=== PATIENT | female | born 1980 | race Caucasian/White ===

== ENCOUNTER 2020-07-04 08:02 | Outpatient (REF) | payer OTHER, SELFPAY ==
[2020-07-09 21:38] LABS: HPV mRNA E6/E7 rflx Not Detected (Not Detected)
== END 2020-07-04 08:03 | disposition home or self-care (01) ==
LOC: HO.LAB 08:02
PROVIDERS: PCP Nurse Practitioner Family; Visit Provider Advanced Practice Midwife
DX: Z01.419 Encounter for gynecological examination (general) (routine) without abnormal findings (principal); Z79.899 Other long term (current) drug therapy; E66.01 Morbid (severe) obesity due to excess calories; Z68.41 Body mass index [BMI] 40.0-44.9, adult; Z80.3 Family history of malignant neoplasm of breast
CPT/HCPCS: 87624; 87625; 88142

== ENCOUNTER 2020-08-08 19:32 | Emergency (ER) | payer OTHER, SELFPAY ==
[2020-08-08 19:41] VITALS: BP 132/60; PULSE 71; RESP 16; TEMP 36; O2SAT 100; BMI 40.9
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
== END 2020-08-08 20:44 | disposition home or self-care (01) ==
PROVIDERS: Emergency Provider Internal Medicine; PCP Nurse Practitioner Family
DX: S29.012A Strain of muscle and tendon of back wall of thorax, initial encounter (principal); V43.52XA Car driver injured in collision with other type car in traffic accident, initial encounter; Y93.89 Activity, other specified; Y92.414 Local residential or business street as the place of occurrence of the external cause; Y99.9 Unspecified external cause status
CPT/HCPCS: 99284

== ENCOUNTER 2020-10-07 13:15 | Outpatient (REF) | payer OTHER, SELFPAY ==
[2020-10-10 16:02] LABS: HPV mRNA E6/E7 rflx Not Detected (Not Detected)
== END 2020-10-07 13:16 | disposition home or self-care (01) ==
LOC: HO.LAB 13:15
PROVIDERS: Visit Provider Advanced Practice Midwife
DX: R87.615 Unsatisfactory cytologic smear of cervix (principal)
CPT/HCPCS: 36415; 87624; 88142

== ENCOUNTER 2021-07-23 08:32 | Outpatient (REF) | payer OTHER, SELFPAY ==
[2021-07-23 11:17] LABS: MANUAL DIFF FLAG NO
[2021-07-23 11:26] LABS: Basophils Percent Auto 0.6 % (0-2); Eosinophils Percent Auto 0.8 % (0-4); Hematocrit 45.1 % (37.0-47.0); Hemoglobin 15.2 g/dl (12.0-16.0); Imm Gran Abs Auto 0.01 X10*3/uL (0.00-0.03); Imm Gran Pct Auto 0.2 % (0.0-0.4); Lymphocytes Absolute Auto 1.4 X10*3/uL (1.2-4.9); Lymphocytes Percent Auto 27.5 % (20-40); Mean Corpuscular HGB Conc 33.7 g/dl (31.0-35.0); Mean Corpuscular Volume 91.9 fL (80.0-98.0); Mean Platelet Volume 11.4 fL (9.4-12.3); Monocytes Absolute Auto 0.5 X10*3/uL (0.1-1.2); Monocytes Percent Auto 9.4 % (2-11); Neutrophils Absolute Auto 3.1 x10*3/uL (2.0-8.3); Neutrophils Percent Auto 61.5 % (45-73); Platelet Count 203 X10*3/uL (160-400); Red Blood Count 4.91 X10*6/uL (4.20-5.50); Red Cell Distribution Width 12.8 % (11.0-16.0)
[2021-07-23 11:42] LABS: Appearance Urine CLEAR; Color Urine YELLOW; Glucose Urine UA NEG (NEG); Leukocyte Esterase Urine 1+ (NEG); Nitrite Urine NEG (NEG); PH 6.5 (5.0-8.0); UACC Culture Trigger YES; Urine Blood NEG (NEG); Urine Ketones NEG (NEG); Urine Protein NEG (NEG-TRACE)
[2021-07-23 11:56] LABS: Alanine Aminotransferase 17 U/L (0-31); Albumin Level 4.3 g/dL (3.5-5.0); Alkaline Phosphatase 68 U/L (39-117); Anion Gap 12 (12-20); Aspartate Amino Transferase 22 U/L (5-31); Blood Urea Nitrogen 8 mg/dL (9-16); Calcium 9.8 mg/dL (8.4-10.2); Carbon Dioxide 27 mmol/L (22-29); Chloride 107 mmol/L (96-108); Cholesterol 134 mg/dL; Estimated Glomerular Filt Rate > 60; Glucose Fasting 99 mg/dL (60-99); HDL Cholesterol 55 mg/dL; Iron 67 mcg/dL (30-160); LDL Cholesterol Calculated 63 mg/dl; Percent Iron Saturation 20 % (15-50); Potassium 4.8 mmol/L (3.3-5.1); Sodium 141 mmol/L (135-145); Total Iron Binding Capacity 337 mcg/dL (228-428); Total Protein 6.9 g/dL (6.5-8.0); Triglycerides 80 mg/dL; Unsaturated Iron Binding 270 ug/dL
[2021-07-23 11:59] LABS: Bacteria Urine 1+ /LPF; RBC Urine 0-2 /HPF (0); Squamous Epithelial Cell Urine 1+ /LPF
[2021-07-23 12:16] LABS: Ferritin 53 ng/mL (10-122); TSH reflex Free T4 1.47 uIU/mL (0.32-4.0)
[2021-07-23 12:32] LABS: Folate > 20.0 ng/mL (> or = 4.0); Vitamin B12 1975 pg/mL (200-900)
== END 2021-07-23 08:33 | disposition home or self-care (01) ==
LOC: HO.HMGCLDS 08:32
PROVIDERS: Visit Provider Nurse Practitioner Family
DX: Z00.00 Encounter for general adult medical examination without abnormal findings (principal); D50.9 Iron deficiency anemia, unspecified; E53.8 Deficiency of other specified B group vitamins
CPT/HCPCS: 36415; 80053; 80061; 81001; 82607; 82728; 82746; 83540; 84443; 85025; 87086

== ENCOUNTER 2022-07-22 09:35 | Outpatient (REF) | payer OTHER, SELFPAY ==
[2022-07-22 11:14] LABS: Appearance Urine Clear; Color Urine Yellow; Glucose Urine UA Negative (Negative); Leukocyte Esterase Urine Negative (Negative); Nitrite Urine Negative (Negative); Specific Gravity - Urine <= 1.005 (1.005-1.025); Urine Blood Negative (Negative); Urine Ketones Negative (Negative); Urine Protein Negative (Neg-Trace)
[2022-07-22 11:16] LABS: MANUAL DIFF FLAG NO
[2022-07-22 11:35] LABS: Basophils Percent Auto 0.8 % (0-2); Eosinophils Absolute Auto 0.1 X10*3/uL (0.0-0.4); Eosinophils Percent Auto 1.4 % (0-4); Hematocrit 43.7 % (37.0-47.0); Hemoglobin 14.6 g/dl (12.0-16.0); Imm Gran Abs Auto 0.01 X10*3/uL (0.00-0.03); Imm Gran Pct Auto 0.3 % (0.0-0.4); Lymphocytes Absolute Auto 0.9 X10*3/uL (1.2-4.9); Lymphocytes Percent Auto 23.6 % (20-40); Mean Corpuscular HGB Conc 33.4 g/dl (31.0-35.0); Mean Corpuscular Hemoglobin 30.6 pg (27.0-33.0); Mean Corpuscular Volume 91.6 fL (80.0-98.0); Mean Platelet Volume 11.7 fL (9.4-12.3); Monocytes Absolute Auto 0.6 X10*3/uL (0.1-1.2); Monocytes Percent Auto 15.6 % (2-11); Neutrophils Absolute Auto 2.1 x10*3/uL (2.0-8.3); Neutrophils Percent Auto 58.3 % (45-73); Platelet Count 183 X10*3/uL (160-400); Red Blood Count 4.77 X10*6/uL (4.20-5.50); Red Cell Distribution Width 12.7 % (11.0-16.0); White Blood Count 3.7 X10*3/uL (4.8-10.8)
[2022-07-22 12:06] LABS: Ferritin 46 ng/mL (10-250); TSH reflex Free T4 1.82 uIU/mL (0.32-4.0)
[2022-07-22 12:07] LABS: Alanine Aminotransferase 14 U/L (0-31); Alkaline Phosphatase 81 U/L (39-117); Anion Gap 11 (12-20); Aspartate Amino Transferase 22 U/L (5-31); Bilirubin Total 1.8 mg/dL (0.0-1.0); Blood Urea Nitrogen 9 mg/dL (9-16); Calcium 8.7 mg/dL (8.4-10.2); Carbon Dioxide 28 mmol/L (22-29); Chloride 105 mmol/L (96-108); Cholesterol 131 mg/dL; Estimated Glomerular Filt Rate > 60; Glucose Fasting 91 mg/dL (60-99); HDL Cholesterol 60 mg/dL; Iron 167 mcg/dL (30-160); LDL Cholesterol Calculated 55 mg/dl; Percent Iron Saturation 49 % (15-50); Potassium 4.1 mmol/L (3.3-5.1); Sodium 140 mmol/L (135-145); Total Iron Binding Capacity 338 mcg/dL (228-428); Total Protein 6.5 g/dL (6.5-8.0); Triglycerides 80 mg/dL; Unsaturated Iron Binding 171 ug/dL
== END 2022-07-22 09:36 | disposition home or self-care (01) ==
LOC: HO.HMGCLDS 09:35
PROVIDERS: PCP Nurse Practitioner Family; Visit Provider Nurse Practitioner Family
DX: Z00.00 Encounter for general adult medical examination without abnormal findings (principal); D50.9 Iron deficiency anemia, unspecified
CPT/HCPCS: 36415; 80053; 80061; 81003; 82728; 83540; 84443; 85025

== ENCOUNTER → 2022-08-14 10:18 | Outpatient (REF) | payer OTHER, SELFPAY ==
--- NOTE | 2022-08-14 10:20 | CA_ITS ---
Transthoracic Echocardiogram Patient (Last, First, Middle): Karla Rolle, Gender: Female Date of : 1980 Age: 42 Procedure Date: 08/14/2022 Procedure Type: Transthoracic Echocardiogram Location: OP Height: 157.48 cm Weight: 102.97 kg BSA: 2.02 m2 Heart Rate: 60 bpm BP: 120 / 75 mmHg Pattern Drum Maker: ONEIDA Referring MD: Jeronimo Lewis [facility] Symptoms: R01.1 - Cardiac murmur, unspecified Study Quality: Poor/Contrast ECG Rhythm: Sinus Conclusions: - The left ventricular systolic function is normal. The calculated ejection fraction is 60% by biplane method. - No obvious valvular pathology seen on this study. Findings Procedure Information Contrast agent, definity, is being given per protocol without apparent complications. Left Ventricle Normal left ventricular cavity size. There is normal left ventricular wall thickness. The left ventricular systolic function is normal. The calculated ejection fraction is 60% by biplane method. There is no evidence of regional wall motion abnormalities. Diastolic function is normal for age. Right Ventricle Normal right ventricular cavity size and systolic function. Atria Both atria are normal in size. Aortic Valve There is a normal trileaflet aortic valve. There is no aortic valve stenosis. There is no aortic valve regurgitation. Mitral Valve The mitral valve appears normal. There is trace mitral valve regurgitation. There is no mitral valve stenosis. Pulmonic Valve The pulmonic valve is likely normal. Tricuspid Valve Normal tricuspid valve structure. There is mild tricuspid valve regurgitation. There is no evidence of pulmonary hypertension. Great Vessels The asc aorta is normal in size. Venous The inferior vena cava is normal in size and collapses greater than 50% with inspiration. Pericardium/Pleural There is no evidence of pericardial effusion. Prior Study Comparison No significant change compared to prior study dated: 05/18/2019. Recommendations, Care & Conclusions No obvious valvular pathology seen on this study. Measurements 2D Linear Measurements IVSd: 0.81 0.6-0.9/0.6-1.0 cm LVIDd: 5.19 3.9-5.3/4.2-5.9 cm LVIDd Index: 2.57 2.4-3.2/2.2-3.1 cm/m2 LVIDs: 2.71 2.0-3.6 cm LVPWd: 0.92 0.7-1.1 cm LA Diam: 3.20 2.7-3.8/3.0-4.0 cm LAIDs Index: 1.58 1.5-2.3 cm/m2 LV Mass: 198.19 67-162/88-224 g LV Mass Index: 98.12 43-95/49-115 g/m2 LVOT Diam: 1.80 3.0+(-)1.3 cm 2D Systolic Function EF 4C: 61.10 >55% EF 2C: 60.40 >55% EF BiP: 60.20 >55% Mitral Valve MV Pk E: 0.97 MV PK A: 0.67 MV Decel Time: 216.00 E/A: 1.40 E'Lateral: 13.60 E'Medial: 11.30 E/E' Med: 8.60 E/E' Lat: 7.10 PHT: 63.00 MVA PHT: 3.49 Decel Ogle: 4.49 Aortic Valve AoV Pk Jaime: 1.49 AoV Mn Jaime: 1.01 AoV VTI: 0.33 AoV Pk Grad: 9.00 Aov Mn Grad: 5.00 CINDY Cont.VTI: 1.88 LVOT LVOT Pk Jaime: 1.15 LVOT Mn Jaime: 0.76 LVOT VTI: 0.24 LVOT Pk Grad: 5.00 LVOT Mn Grad: 3.00 LVOT Diam: 1.80 LVOT Area: 2.54 Diastolic Function MV Pk E: 0.97 MV Pk A: 0.67 E/A: 1.40 E'Medial: 11.30 E/E' Med: 8.60 E' Laterial: 13.60 E/E' Lat: 7.10 Right Ventricle TAPSE (mm): 24.30 TVS' Jaime: 11.00 Tricuspid Valve TR Pk Jaime: 2.10 TR Pk Grad: 18.00 RA Press: 3.00 RVSP: 21.00 Great Vessels Aorta Sinus of Valsalva: 2.60 2.0-3.5 cm Ao Asc: 2.90 2.1-3.4 cm Pulmonary Valve PV Pk Jaime: 1.05 Peak PV Grad: 4.00 Updated in Other Vendor System with Status of Final Samuel Barnett MD electronically signed on 08/15/2022 2:14:29 PM with status of Final
== END ==
LOC: HO.CARD 10:18
PROVIDERS: PCP Nurse Practitioner Family; Visit Provider Nurse Practitioner Family
DX: R01.1 Cardiac murmur, unspecified (principal)
CPT/HCPCS: 93306; Q9957

== ENCOUNTER 2022-08-18 15:49 | Outpatient (REF) | payer OTHER, SELFPAY ==
--- NOTE | ~2022-08-18 | MM_ITS ---
EXAMINATION: MM SCREENING DIGITAL BREAST TOMOSYNTHESIS, BILATERAL CLINICAL INFORMATION: Screening. Asymptomatic. The lifetime risk of breast cancer based on the Tyrer-Cuzick Model is 15.6%. COMPARISON: Mammography: None TECHNIQUE: Digital breast tomosynthesis is performed in both the craniocaudal and mediolateral oblique views along with computer-aided detection (CAD). Synthesized 2D images are generated from the tomosynthesis. FINDINGS: There are scattered areas of fibroglandular density (ACR BI-RADS breast composition Category b). There are no significant masses, abnormal calcifications, or other abnormalities. MM/MM tomosynthesis screening BI IMPRESSION: No mammographic evidence of malignancy. ASSESSMENT: BI-RADS 1: Negative RECOMMENDATION: Routine annual mammography screening. This patient's information was entered into a reminder system with a target due date for their next mammogram.
== END 2022-08-18 15:50 | disposition home or self-care (01) ==
LOC: HO.MAMMO 15:49
PROVIDERS: PCP Nurse Practitioner Family; Visit Provider Nurse Practitioner Family
DX: Z12.31 Encounter for screening mammogram for malignant neoplasm of breast (principal)
CPT/HCPCS: 77063; 77067

== ENCOUNTER 2022-11-19 11:13 | Outpatient (REF) | payer OTHER, SELFPAY ==
[2022-11-20 10:39] LABS: BV Int Neg Control Negative (Negative); BV Int Pos Control Positive (Positive)
== END 2022-11-19 11:14 | disposition home or self-care (01) ==
LOC: HO.LAB 11:13
PROVIDERS: PCP Nurse Practitioner Family; Visit Provider Advanced Practice Midwife
DX: Z01.419 Encounter for gynecological examination (general) (routine) without abnormal findings (principal); N92.0 Excessive and frequent menstruation with regular cycle; N84.1 Polyp of cervix uteri
CPT/HCPCS: 87480; 87510; 87660

== ENCOUNTER 2022-12-03 12:44 | Outpatient (REF) | payer OTHER, SELFPAY ==
--- NOTE | ~2022-12-03 | US_ITS ---
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 Transvaginal imaging is performed due to inadequate visualization transabdominally. FINDINGS: Uterus: The uterus is retroflexed and measures 7.2 x 3.7 x 5.2 cm. The double wall endometrial thickness is 7 mm. The uterus is smooth in contour and has normal myometrial echogenicity. No visible fibroid. Adnexa: Both ovaries are visualized. There is normal color flow to the adnexa. There is no ovarian torsion. There is no pelvic ascites or fluid collection. Right ovary measures 3.3 x 2.0 x 2.2 cm. Volume of 8 mL. There appears to be a mildly complex cysts with smooth back wall and increased through sound transmission and no internal vasculature measuring approximately 1.7 x 1.2 x 1.1 cm in size. No follow-up for this is recommended. Left ovary measures 3.8 x 2.0 x 2.2 cm. Volume of 9 mL. There is a 1.7 x 1.2 x 1.1 cm hypoechoic region with increased through sound transmission and some central echogenic material. No internal vascularity is seen however there is peripheral vascularity present in this likely represents a corpus luteum. No follow-up for this is recommended. US/US pelvic and transvaginal IMPRESSION: No definite cervical polyp is appreciated on this ultrasound study. No other endometrial lesions are appreciated.
== END 2022-12-03 12:45 | disposition home or self-care (01) ==
LOC: HO.US 12:44
PROVIDERS: PCP Nurse Practitioner Family; Visit Provider Advanced Practice Midwife
DX: N84.1 Polyp of cervix uteri (principal); N92.0 Excessive and frequent menstruation with regular cycle
CPT/HCPCS: 76830; 76856

== ENCOUNTER 2022-12-10 11:08 | Outpatient (REF) | payer OTHER, SELFPAY | END 2022-12-10 11:09 | disposition home or self-care (01) | LOC: HO.LAB 11:08 | PROVIDERS: PCP Nurse Practitioner Family; Visit Provider Advanced Practice Midwife | DX: N84.1 Polyp of cervix uteri (principal); Z32.02 Encounter for pregnancy test, result negative | CPT/HCPCS: 57500; 81025; 88305 ==

== ENCOUNTER → 2022-12-15 14:20 | Outpatient (BNVA) | payer OTHER, SELFPAY | PROVIDERS: PCP Nurse Practitioner Family; Visit Provider Advanced Practice Midwife | DX: Z13.89 Encounter for screening for other disorder (principal) ==

== ENCOUNTER 2023-01-14 10:50 | Outpatient (REF) | payer OTHER, SELFPAY ==
--- NOTE | ~2023-01-14 | US_ITS ---
EXAMINATION: US PELVIS COMPLETE CLINICAL INFORMATION: Ovarian cyst follow-up COMPARISON: Pelvic ultrasound 12/03/2022 TECHNIQUE: Transabdominal and transvaginal imaging was performed. FINDINGS: The uterus is of normal size and echogenicity measuring 9.4 x 3.7 x 4.7 cm. Uterus is retroverted in position. A regular homogeneous endometrium is identified measuring 1.4 cm. Both ovaries are of normal size. The right measures 3.6 x 2.5 x 2.3 cm for a volume of 10.8 mL. The right ovary is remarkable for a 1.8 x 1.3 x 1.6 cm cyst with low level internal echoes and possible fluid fluid level, previously 1.4 x 1.2 x 1.4 cm. The left measures 3.5 x 2.2 x 2.0 cm for a volume of 8.1 mL. There is no pelvic free fluid. US/US pelvic and transvaginal IMPRESSION: A 1.8 cm right ovarian cyst with low-level internal echoes and possible fluid fluid level, slightly increased in size from prior. Differential consideration would include an ovarian endometrioma, which could be confirmed with contrast-enhanced MR pelvis.
== END 2023-01-14 10:51 | disposition home or self-care (01) ==
LOC: HO.US 10:50
PROVIDERS: PCP Nurse Practitioner Family; Visit Provider Advanced Practice Midwife
DX: R10.2 Pelvic and perineal pain (principal); N83.299 Other ovarian cyst, unspecified side
CPT/HCPCS: 76830; 76856

== ENCOUNTER → 2023-01-28 14:55 | Outpatient (BNVA) | payer OTHER, SELFPAY | PROVIDERS: PCP Nurse Practitioner Family; Visit Provider Advanced Practice Midwife ==

== ENCOUNTER 2023-02-10 14:26 | Outpatient (REF) | payer OTHER, SELFPAY ==
--- NOTE | ~2023-02-10 | MR_ITS ---
EXAMINATION: MRI PELVIS WITH AND WITHOUT CONTRAST CLINICAL INFORMATION: Reason for Exam N83.201 - Unspecified ovarian cyst, right side COMPARISON: Pelvic ultrasound 01/14/2023 TECHNIQUE: Multiple routine MRI sequences through the pelvis were obtained before and after the uneventful administration of 10 mL of Gadavist gadolinium-based IV contrast. FINDINGS: UTERUS: Retroverted uterus has a normal configuration. Endometrium is uniform and measures 0.7 cm in thickness. Junctional zone is normal in signal and thickness. No focal uterine mass seen. CERVIX: Unremarkable. VAGINA: Unremarkable. OVARIES: The right ovary is remarkable for a 2.3 cm bilobed intrinsically T1 hyperintense left right ovarian lesion with a T2 hypointense shading sign compatible with an endometrioma but previously 1.8 cm. The left ovary is unremarkable. KIDNEYS: Two normally positioned kidneys are seen. No hydronephrosis. BLADDER: Unremarkable. PELVIC FREE FLUID: Trace simple pelvic free fluid within physiologic limits of volume. LYMPH NODES: No pathologically enlarged lymph nodes. OSSEOUS STRUCTURES: No acute or suspicious osseous abnormalities. MR/MR pelvis wo/w con IMPRESSION: A 2.3 cm bilobed right ovarian endometrioma. If not surgically resected, recommend annual follow-up pelvic ultrasound.
== END 2023-02-10 14:27 | disposition home or self-care (01) ==
LOC: HO.MRI 14:26
PROVIDERS: PCP Nurse Practitioner Family; Visit Provider Advanced Practice Midwife
DX: N83.201 Unspecified ovarian cyst, right side (principal)
CPT/HCPCS: 72197; A9585

== ENCOUNTER → 2023-02-23 13:30 | Outpatient (BNVA) | payer OTHER, SELFPAY | PROVIDERS: PCP Nurse Practitioner Family; Visit Provider Advanced Practice Midwife ==

== ENCOUNTER 2023-08-27 07:23 | Outpatient (REF) | payer OTHER, SELFPAY ==
--- NOTE | ~2023-08-27 | MM_ITS ---
EXAMINATION: MM SCREENING DIGITAL BREAST TOMOSYNTHESIS, BILATERAL CLINICAL INFORMATION: Screening. Asymptomatic. COMPARISON: Mammography: 08/18/2022. (Baseline) TECHNIQUE: Digital breast tomosynthesis is performed in both the craniocaudal and mediolateral oblique views along with computer-aided detection (CAD). Synthesized 2D images are generated from the tomosynthesis. FINDINGS: There are scattered areas of fibroglandular density (ACR BI-RADS breast composition Category b). There is a subtle focal asymmetric density in the far posterior upper outer LEFT breast just lateral to the nipple line on the CC projection. This most likely represents tissue density overlapped although 3-D spot compression views in the CC and MLO projections recommended, as well as 3-D CC rolled medial and rolled lateral views, with scheduled ultrasound should the abnormality persist. Otherwise, there are no additional suspicious masses, suspicious grouped calcifications, or areas of architectural distortion in either breast. The parenchymal pattern is stable from prior exams. MM/MM tomosynthesis screening BI IMPRESSION: Left breast far posterior slightly upper outer quadrant asymmetric density as described, for which diagnostic views are recommended as detailed. No suspicious findings in the right breast. ASSESSMENT: BI-RADS BI-RADS 0 - Incomplete: Needs additional Imaging. RECOMMENDATION: 1. Additional views of the left breast 2. Targeted ultrasound if warranted after review of the additional views. 3. Radiology department staff will contact the patient for additional imaging. Additional Imaging required This examination should not preclude the clinical evaluation of a suspicious palpable abnormality.
== END 2023-08-27 07:24 | disposition home or self-care (01) ==
LOC: HO.MAMMO 07:23
PROVIDERS: PCP Nurse Practitioner Family; Visit Provider Nurse Practitioner Family
DX: Z12.31 Encounter for screening mammogram for malignant neoplasm of breast (principal)
CPT/HCPCS: 77063; 77067

== ENCOUNTER → 2023-08-27 07:30 | Outpatient (BNV) | payer OTHER, SELFPAY | PROVIDERS: PCP Nurse Practitioner Family; Visit Provider Radiology Diagnostic Radiology | DX: Z12.31 Encounter for screening mammogram for malignant neoplasm of breast (principal) | CPT/HCPCS: 77063; 77067 ==

== ENCOUNTER 2023-10-28 10:51 | Outpatient (REF) | payer OTHER, SELFPAY ==
--- NOTE | ~2023-10-28 | MM_ITS ---
EXAMINATION: MM DIAGNOSTIC DIGITAL BREAST TOMOSYNTHESIS, LEFT US BREAST LIMITED, LEFT MAMMOGRAPHY: CLINICAL INFORMATION: Follow-up focal asymmetry seen on screening exam posterior one third left breast just lateral to the nipple line, slightly superior to the nipple line. COMPARISON: Mammography: Screening mammography 08/31/2023, and 08/19/2022. TECHNIQUE: Digital breast tomosynthesis is performed in the following views: Full-field left 3-D mediolateral view, full-field 3-D left CC rolled medial and rolled lateral views, and 3-D spot compression left CC and MLO views were performed. Computer-aided diagnosis was used for this study. FINDINGS: There are scattered areas of fibroglandular density (ACR BI-RADS breast composition Category b). There is persistence of a 4 mm oval focal asymmetry on the CC spot compression view, however this is not well seen on the rolled medial or rolled lateral CC views. The correlate seen in the posterior slightly upper left MLO has the appearance of overlapping tissue on diagnostic views. We will attempt to visualize this finding with ultrasound although it appears this is most likely related to superimposition artifact of normal tissues, and not a true space-occupying abnormality. No new abnormal findings are evident in the left breast. ULTRASOUND: CLINICAL INFORMATION: Evaluate small posterior focal asymmetry slightly upper slightly outer left breast, likely a summation artifact. COMPARISON: No prior ultrasound. TECHNIQUE: Targeted sonographic evaluation was performed using a high frequency linear transducer. Selected archived documentation. FINDINGS: LEFT BREAST: There is a mixture of fatty and fibroglandular tissue. No suspicious mass is seen. There is no pathologic acoustic shadowing. A prominent venous structure is noted. No cystic abnormality. Overall, no correlate to the small 4 mm focal asymmetry in the posterior upper lateral right breast. MM/MM tomosynthesis added views L IMPRESSION: -There are no findings in the left breast suspicious for malignancy. -4 mm asymmetry only well seen on the CC projection posterior slightly upper outer left breast is felt most likely represent summation artifact and has no definite ultrasound correlate. It also appears to not definitively persist on the additional diagnostic views. Six-month interval follow-up diagnostic mammography with standard 3-D CC and MLO views recommended to ensure stability. If not changed at that time, no further follow-up recommended. OVERALL ASSESSMENT: Mammography: BI-RADS 3 - Probably benign finding(s) - 6 month follow-up suggested Ultrasound: BI-RADS 3 - Probably benign finding(s) - 6 month follow-up suggested RECOMMENDATION: 6 Month F/U This patient's information was entered into a reminder system with a target due date for their next mammogram.
== END 2023-10-28 10:52 | disposition home or self-care (01) ==
LOC: HO.MAMMO 10:51
PROVIDERS: PCP Nurse Practitioner Family; Visit Provider Nurse Practitioner Family
DX: R92.2 Inconclusive mammogram (principal)
CPT/HCPCS: 76642; 77061; 77065

== ENCOUNTER → 2023-10-28 11:00 | Outpatient (BNV) | payer OTHER, SELFPAY | PROVIDERS: PCP Nurse Practitioner Family; Visit Provider Radiology Diagnostic Radiology | DX: R92.8 Other abnormal and inconclusive findings on diagnostic imaging of breast (principal) | CPT/HCPCS: 76642; 77061; 77065 ==

== ENCOUNTER 2024-01-19 14:56 | Outpatient (AMB) | payer OTHER, SELFPAY ==
--- NOTE | 2024-01-19 14:59 | MHC.OFFVIS ---
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 Doing well with no concerns. She had a total hysterectomy and bilateral salpingectomies due to heavy menstrual bleeding, endometrial asthma and chronic pelvic pain. She tries to eat healthy and stays active with exercise. Currently is sexually active. She denies vaginal itching and irritation. Pt. with history of negative genetic testing, FH breast and ovarian, no colon cancer. Mammogram: 2023, has a six-month follow-up. [facility] Medical History (Updated 01/19/24 @ 15:28 by Socorro Kelsey CNM) Endometrioma of ovary Right ovarian cyst Holosystolic murmur Morbid obesity with BMI of 40.0-44.9, adult Iron deficiency anemia B12 deficiency Vitamin D deficiency Family history of breast cancer Surgical History (Updated 01/19/24 @ 15:14 by Socorro Kelsey CNM) Hx of hysterectomy History of tonsillectomy and adenoidectomy Hx of cholecystectomy H/O gastric bypass Family History Father No problems noted. Mother Breast cancer Bone cancer Brain cancer Maternal Grandmother Cancer HTN (hypertension) Ovarian cancer Maternal Grandfather No problems noted. Paternal Grandfather No problems noted. Paternal Grandmother Skin cancer Sister No problems noted. Son No problems noted. Son No problems noted. Social History Housing: House Alcohol intake: current Alcohol intake frequency: holidays/special occasions only Patient Tobacco Use Status: Never used Tobacco e-Cigarette/Vaping Use: Never Used Second Hand Smoke Exposure: No (as a child ) service: No Current occupational status: employed Current occupation: [employer] Current occupational exposures/hazards: Yes Sexual orientation: Straight/Heterosexual Gender identity: Female Cognitive needs: No Hearing needs: No Vision needs: No Female Reproductive History Menstrual Age of Menarche: 14 control method: permanent sterilization Total pregnancies: 2 Full term: 2 Number of Living Children: 2 Date of last pap smear: 10/08/20 (negative) Date of Mammogram: 10/28/23 Review of Systems Const All systems reviewed & are unremarkable except as noted in HPI and below Reports as per HPI Eyes Reports no additional complaints ENT Reports no additional complaints Card Reports no additional complaints Resp Reports no additional complaints GI Reports as per HPI and Reports no additional complaints Reports as per HPI Musc Reports no additional complaints Skin/Breast Reports as per HPI Neuro Reports no additional complaints Psych Reports no additional complaints Endo Reports no additional complaints Jesu/Lymph Reports no additional complaints Aller/Immun Reports no additional complaints Physical Exam Vital Signs: BMI result Body Mass Index 44.3 Const General: cooperative, healthy appearing, no acute distress, well developed and alert Orientation/consciousness: patient oriented x3 HEENT Head: Yes normal to inspection Eyes General: appearance normal, both eyes and all related structures Neck Neck: Yes normal visual inspection Thyroid: Thyroid normal Chest Chest palpation & inspection: normal inspection of the chest and other (no puckering, dimpling, peau de orange, retraction, discharge, masses) Breast/axilla inspection: normal inspection of the breasts Breast/axilla palpation: normal palpation of the breasts Resp Effort & Inspection: normal respiratory effort GI Inspection: Yes normal to inspection Palpation (GI): Soft to palpation Rectal Exam - Female: deferred General: Yes bladder normal to palpation External Female Exam: normal external appearance and normal appearance of the urethra Speculum Exam - Vagina: normal appearance of the vagina, normal palpation and normal vaginal discharge Speculum Exam - Cervix: Cervix absent (No lesions or nodules, granulation tissue at midline) Bimanual exam- vagina & uterus: normal bimanual exam, normal palpation, bladder normal to palpation and uterus absent Bimanual Exam- Adnexa, other: no masses Skin General skin exam: no rashes or lesions noted Rashes: no rashes Neuro General: patient oriented x3 Cognition (Neuro): normal cognition Extrem General: Yes normal to inspection Psych Attitude: cooperative Thought process: Normal thought process present Assessment & Plan Assessment & Plan (1) Well woman exam with routine gynecological exam: Code(s): Z01.419 - Encounter for gynecological examination (general) (routine) without abnormal findings Category: Medical Plan Discussed: Current recommendations for pap smears per ASCCP guidelines-no pap. Breast awareness and periodic breast exams. Maintain a healthy lifestyle including a well balanced diet and routine exercise. Mammogram yearly and 6 month follow up. Colonoscopy >45, or at risk sooner. Patient verbalizes understanding and agrees to the plan of care. She was given opportunity to ask questions and all questions were answered to the best of my ability. RTO in one year for annual senior government program analyst examination. This note is constructed using voice recognition software. While every effort has been made to ensure accuracy, manager android errors may have been included. Coding Level of Care Code Est Pt Prev Care 40-64y(50302) Diagnoses Well woman exam with routine gynecological exam Z01.419
[2024-01-19 15:01] VITALS: BP 100/58; BMI 44.3
== END 2024-01-19 16:11 | disposition home or self-care (01) ==
LOC: HO.HWS 14:56
PROVIDERS: PCP Nurse Practitioner Family; Visit Provider Advanced Practice Midwife
DX: Z01.419 Encounter for gynecological examination (general) (routine) without abnormal findings (principal)
CPT/HCPCS: 99396

== ENCOUNTER → 2024-01-19 14:56 | Outpatient (BNVA) | payer OTHER, SELFPAY | PROVIDERS: PCP Nurse Practitioner Family; Visit Provider Advanced Practice Midwife ==

== ENCOUNTER 2024-03-07 12:20 | Outpatient (AMB) | payer BC, SELFPAY ==
--- NOTE | 2024-03-07 12:31 | MHC.PC.OV ---
Vital Signs 03/07/24 12:34 Height 5 ft 2 in Weight 237 lb BMI 43.3 BP 108/70 Blood Pressure Location Rt brachial Position Sitting Pulse 55 Pulse Source Pulse Oximeter Pulse Oximetry (%) 99 Oxygen Delivery Method Room Air Intake Visit Reasons: PE Intake Note: Patient here for physical exam. Pap: 2023 Mammo: 2023 Allergies codeine Allergy (Unknown, Verified 03/07/24 13:00) Unknown erythromycin base [Erythromycin Base] Allergy (Unknown, Verified 03/07/24 13:00) RASH Penicillins Allergy (Unknown, Verified 03/07/24 13:00) ANAPHYLAXIS, hives Medication List - Last Reconciled 03/07/24 by RADHA Goddard ascorbic acid (vitamin C) mg PO cholecalciferol (vitamin D3) 125 mcg PO DAILY cyanocobalamin (vitamin B-12) 2,000 mcg PO DAILY ferrous sulfate ER 142 mg PO DAILY Tobacco use date assessed: 03/07/24 Dental Screening Dental Screen Date: 03/07/24 Did you have a dental visit in the last 12 months?: Yes Did you have a dental problem in the last 6 months where you did not have access to dental care?: No Was dental information given to patient?: Patient has dentist HPI PE HPI Details Pt is here for a PE. Will order labs. Mammo is up to date. 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 Pt has a hx of iron deficiency anemia, will order labs. She also has a hx of B12 deficiency, will check B12. [facility] Medical History Endometrioma of ovary Right ovarian cyst Holosystolic murmur Morbid obesity with BMI of 40.0-44.9, adult Iron deficiency anemia B12 deficiency Vitamin D deficiency Family history of breast cancer Surgical History Hx of hysterectomy History of tonsillectomy and adenoidectomy Hx of cholecystectomy H/O gastric bypass Family History Father No problems noted. Mother Breast cancer Bone cancer Brain cancer Maternal Grandmother Cancer HTN (hypertension) Ovarian cancer Maternal Grandfather No problems noted. Paternal Grandfather No problems noted. Paternal Grandmother Skin cancer Sister No problems noted. Son No problems noted. Son No problems noted. Social History Housing: House Alcohol intake: current Alcohol intake frequency: holidays/special occasions only Patient Tobacco Use Status: Never used Tobacco e-Cigarette/Vaping Use: Never Used Second Hand Smoke Exposure: No (as a child ) service: No Current occupational status: employed Current occupation: [email or web address] Current occupational exposures/hazards: Yes Sexual orientation: Straight/Heterosexual Gender identity: Female Cognitive needs: No Hearing needs: No Vision needs: No Female Reproductive History Menstrual Age of Menarche: 14 Questionnaire PHQ-9 Over the last 2 weeks, how often have you been bothered by any of the following problems? 1. Little interest or pleasure in doing things: not at all 2. Feeling down, depressed, or hopeless: not at all 3. Trouble falling or staying asleep, or sleeping too much: not at all 4. Feeling tired or having little energy: not at all 5. Poor appetite or overeating: not at all 6. Feeling bad about yourself - or that you are a failure or have let yourself or your family down: not at all 7. Trouble concentrating on things, such as reading the newspaper or watching television: not at all 8. Moving or speaking so slowly that other people could have noticed. Or the opposite - being so fidgety or restless that you have been moving around a lot more than usual: not at all 9. Thoughts that you would be better off or of hurting yourself in some way: not at all Total score: 0 Depression Screening Interpretation: Negative Depression Screening Done: Yes 26739 - PHQ-9 Billing: Yes Source: Developed by Drs. Guerrero Lee, Zarina Smyth, Thomas Figueroa and colleagues, with an educational aleksander from [employer]. Thrive Questionnaire Date Thrive assessed: 03/07/24 I am a: Patient What is your living situation today?: I have a steady place to live Within the past 12 months, did the food you bought not last and you didn't have the money to get more?: Never true Within the past 12 months, did you worry whether your food would run out before you got money to buy more?: Never true Do you have trouble paying for medicines?: No Do you have trouble getting transportation to medical appointments?: No Do you have trouble paying your heating and electricity bill?: No Do you have trouble taking care of your child, family member or friend?: No Do you have trouble with day-to-day activities such as bathing, preparing meals, shopping, managing finances, etc.?: No Are you currently unemployed and looking for a job?: No Are you interested in more education?: No Please select the resources that you would like help with: None Currently or been in a relationship where the following occur: I choose not to answer THRIVE Score: 0 AUDIT C Alcohol Use Questionnaire (AUDIT-C) 1. How often do you have a drink containing alcohol?: Monthly or less 2. How many drinks containing alcohol do you have on a typical day when you are drinking?: 1 or 2 3. How often do you have six or more drinks on one occasion?: Never Total Score: 1 Score Reviewed/Action Taken: No HARRISON-7 AMB Questionnaire HARRISON-7 Date HARRISON - 7 assessed: 03/07/24 Source: Developed by Drs. Guerrero Lee, Zarina Smyth, Thomas Figueroa and colleagues, with an educational aleksander from [employer]. HARRISON-7 Assessment Billing HARRISON-7 Assessment Tool: pt declined-do not bill Review of Systems Const Denies chills and Denies fever(s) Eyes Denies blurry vision ENT Denies vertigo, Denies dizziness and Denies sore throat Card Denies chest pain at rest, Denies chest pain with activity, Denies diaphoresis, Denies dyspnea and Denies dyspnea on exertion Resp Denies cough, Denies dyspnea, Denies dyspnea on exertion and Denies wheezing GI Denies abdominal pain, Denies melena, Denies hematochezia, Denies constipation, Denies diarrhea and Denies loose stools Denies hematuria Musc Denies numbness and Denies tingling Skin/Breast Denies lesions Neuro Denies vertigo, Denies dizziness, Denies numbness and Denies tingling Psych Denies anxiety, Denies depression, Denies homicidal ideation, Denies suicidal ideation and Denies other (substance abuse) Aller/Immun Denies wheezing Physical exam (Primary Care) Vital Signs: Last Vital Signs Pulse 55 03/07/24 12:34 BP 108/70 03/07/24 12:34 Pulse Ox 99 03/07/24 12:34 Oxygen Delivery Method Room Air 03/07/24 12:34 BMI result Body Mass Index 43.3 Tobacco/Smoking Status: Tobacco use Status Tobacco use date assessed 03/07/24 03/07/24 12:37 Patient Tobacco Use Status Never used Tobacco 03/07/24 12:32 e-Cigarette/Vaping Use Never Used 03/07/24 12:32 Depression Screening Interpretation: Negative Thrive Assessment: Date of Thrive Assessment Date Thrive assessed 07/20/22 03/07/24 12:32 Currently or been in a relationship where the following occur: I choose not to answer Const General: cooperative Nutritional Appearance: obese morbidly obese Orientation/consciousness: patient oriented x3 HENMT Head: Yes normal to inspection, Yes normocephalic and Yes atraumatic Ears: TM's normal bilaterally Eyes General: appearance normal, both eyes and all related structures Alignment and Position: alignment normal and position normal Neck Neck: Yes normal visual inspection and Yes no lymphadenopathy Thyroid: Thyroid normal Resp Effort & Inspection: normal respiratory effort Auscultation: clear to auscultation bilaterally Cardio Rate: regular rate Rhythm: regular rhythm Heart sounds: S1 normal heart sound present, S2 normal heart sound present and no murmurs GI Palpation (GI): Soft to palpation and nontender Auscultation: normal bowel sounds Skin Rashes: no rashes Neuro General: patient oriented x3, moves all extremities, no focal motor deficits and deep tendon reflexes 2+ bilaterally Romberg Test: Negative Psych Appearance: grossly normal Mental Status: mental status grossly normal Speech and movement: Normal speech and movement present Affect: normal affect Attitude: cooperative Thought process: Normal thought process present Thought content: Normal thought content present Insight: Good insight present (Psych) Judgement: Good judgement present (Psych) Assessment and Plan Assessment & Plan (1) Iron deficiency anemia: Code(s): D50.9 - Iron deficiency anemia, unspecified Plan: Labs ordered (2) B12 deficiency: Code(s): E53.8 - Deficiency of other specified B group vitamins Plan: Labs ordered (3) Encounter for routine adult physical exam with abnormal findings: Code(s): Z00.01 - Encounter for general adult medical examination with abnormal findings Plan: Labs ordered (4) Physical exam: Code(s): Z00.00 - Encounter for general adult medical examination without abnormal findings Plan: Labs ordered Plan The patient agreed to the use of a medical biller coder for this encounter. Scribed for RADHA Luis by Ana Cristina Olivares medical biller coder, on 03/07/2024 at 12:40 EST. Orders: Orders Complete Blood Count Auto Diff Today Z00.00 - Encounter for general adult medical examination without abnormal findings Comprehensive [place]. Panel Fast Today Z00.00 - Encounter for general adult medical examination without abnormal findings UA CC w/rflx Micro + Cult Today Z00.00 - Encounter for general adult medical examination without abnormal findings Lipid Panel Today Z00.00 - Encounter for general adult medical examination without abnormal findings IRON PROFILE Today D50.9 - Iron deficiency anemia, unspecified TSH reflex Free T4 Today Z00.00 - Encounter for general adult medical examination without abnormal findings Ferritin Today D50.9 - Iron deficiency anemia, unspecified Vitamin B12 and Folate Today E53.8 - Deficiency of other specified B group vitamins Coding Level of Care Code Est Pt Prev Care 40-64y(73749) Diagnoses Iron deficiency anemia D50.9 B12 deficiency E53.8 Encounter for routine adult physical exam with abnormal findings Z00.01 Physical exam Z00.00
[2024-03-07 12:34] VITALS: BP 108/70; PULSE 55; O2SAT 99; BMI 43.3
== END 2024-03-07 15:53 | disposition home or self-care (01) ==
PROVIDERS: PCP Nurse Practitioner Family; Visit Provider Nurse Practitioner Family
DX: Z00.00 Encounter for general adult medical examination without abnormal findings (principal); D50.9 Iron deficiency anemia, unspecified; E53.8 Deficiency of other specified B group vitamins
CPT/HCPCS: 99396

== ENCOUNTER 2024-03-16 07:35 | Outpatient (REF) | payer BC, SELFPAY ==
[2024-03-16 10:10] LABS: MANUAL DIFF FLAG NO
[2024-03-16 10:16] LABS: Basophils Percent Auto 0.7 % (0-2); Eosinophils Percent Auto 0.9 % (0-4); Hematocrit 42.9 % (37.0-47.0); Hemoglobin 14.9 g/dl (12.0-16.0); Imm Gran Abs Auto 0.01 X10*3/uL (0.00-0.03); Imm Gran Pct Auto 0.2 % (0.0-0.4); Lymphocytes Absolute Auto 1.5 X10*3/uL (1.2-4.9); Lymphocytes Percent Auto 34.4 % (20-40); Mean Corpuscular HGB Conc 34.7 g/dl (31.0-35.0); Mean Corpuscular Hemoglobin 31.7 pg (27.0-33.0); Mean Corpuscular Volume 91.3 fL (80.0-98.0); Mean Platelet Volume 11.4 fL (9.4-12.3); Monocytes Absolute Auto 0.5 X10*3/uL (0.1-1.2); Monocytes Percent Auto 11.2 % (2-11); Neutrophils Absolute Auto 2.3 x10*3/uL (2.0-8.3); Neutrophils Percent Auto 52.6 % (45-73); Platelet Count 181 X10*3/uL (160-400); Red Cell Distribution Width 13.2 % (11.0-16.0); White Blood Count 4.4 X10*3/uL (4.8-10.8)
[2024-03-16 10:32] LABS: Appearance Urine Clear; Color Urine Yellow; Glucose Urine UA Negative (Negative); Leukocyte Esterase Urine Moderate (2+) (Negative); Nitrite Urine Negative (Negative); PH 7.5 (5.0-9.0); Specific Gravity - Urine <= 1.005 (1.005-1.025); UMIC TRIGGER UACC YES; Urine Blood Negative (Negative); Urine Ketones Negative (Negative); Urine Protein Negative (Neg-Trace)
[2024-03-16 10:38] LABS: Alanine Aminotransferase 12 U/L (0-31); Alkaline Phosphatase 67 U/L (39-117); Anion Gap 12 (12-20); Aspartate Amino Transferase 19 U/L (5-31); Bilirubin Total 1.4 mg/dL (0.0-1.0); Blood Urea Nitrogen 8 mg/dL (9-16); Calcium 8.8 mg/dL (8.4-10.2); Carbon Dioxide 26 mmol/L (22-29); Chloride 107 mmol/L (96-108); Cholesterol 121 mg/dL (<200); Estimated Glomerular Filt Rate > 60; Glucose Fasting 91 mg/dL (60-99); HDL Cholesterol 56 mg/dL (>40); Iron 123 mcg/dL (30-160); LDL Cholesterol Calculated 51 mg/dL (<100); Percent Iron Saturation 45 % (15-50); Potassium 3.9 mmol/L (3.3-5.1); Sodium 141 mmol/L (135-145); Total Iron Binding Capacity 275 mcg/dL (228-428); Total Protein 6.4 g/dL (6.5-8.0); Triglycerides 73 mg/dL (<150); Unsaturated Iron Binding 152 ug/dL
[2024-03-16 10:47] LABS: Bacteria Urine 1+ (None Seen); Hyaline Casts Urine 0-2 /LPF (0-2); RBC Urine 0-2 /HPF (0-2); WBC Urine 0-5 /HPF (0-5)
[2024-03-16 10:52] LABS: Ferritin 66 ng/mL (10-250); TSH reflex Free T4 1.25 uIU/mL (0.32-4.0)
[2024-03-16 11:23] LABS: Vitamin B12 1042 pg/mL (200-900)
== END 2024-03-16 07:36 | disposition home or self-care (01) ==
LOC: HO.HMGCLDS 07:35
PROVIDERS: PCP Nurse Practitioner Family; Visit Provider Nurse Practitioner Family
DX: Z00.00 Encounter for general adult medical examination without abnormal findings (principal); E50.9 Vitamin A deficiency, unspecified; E53.8 Deficiency of other specified B group vitamins
CPT/HCPCS: 36415; 80053; 80061; 81001; 82607; 82728; 82746; 83540; 84443; 85025; 87086

== ENCOUNTER 2024-05-02 15:00 | Outpatient (REF) | payer BC, SELFPAY ==
--- NOTE | ~2024-05-02 | MM_ITS ---
EXAMINATION: MM DIAGNOSTIC DIGITAL BREAST TOMOSYNTHESIS, LEFT CLINICAL INFORMATION: 6 month Follow-up focal asymmetry seen on screening exam posterior one third left breast just lateral to the nipple line, slightly superior to the nipple line. COMPARISON: Mammography: 10/28/2023, 08/31/2023, 08/07/2023, and 08/18/2022. TECHNIQUE: Digital left breast tomosynthesis is performed in both the craniocaudal and mediolateral oblique views along with computer-aided detection (CAD). Synthesized 2D images are generated from the tomosynthesis. In addition, a added full field left CC view was obtained as well as a laterally exaggerated left CC view. FINDINGS: There are scattered areas of fibroglandular density (ACR BI-RADS breast composition Category b). The previously seen 4 mm oval focal asymmetry on the CC spot compression view is again noted however is entirely unchanged in appearance on both the CC, and MLO views, and again has the appearance of overlapping tissue artifact on tomographic imaging. This finding is benign and no further follow-up is recommended. No suspicious abnormalities noted in the left breast. Parenchymal pattern is unchanged. No skin or axillary abnormality. MM/MM tomosynthesis diagnostic LT IMPRESSION: No mammographic evidence of malignancy. Recommend the patient resume routine annual screening mammography. ASSESSMENT: BI-RADS BI-RADS 1 - Negative RECOMMENDATION: 1 year F/U Results were provided to the patient at time of visit by the technologist. This patient's information was entered into a reminder system with a target due date for their next mammogram. Electronically signed by: Med Souza MD 05/02/2024 03:38 PM EDT
== END 2024-05-02 15:01 | disposition home or self-care (01) ==
LOC: HO.MAMMO 15:00
PROVIDERS: PCP Nurse Practitioner Family; Visit Provider Nurse Practitioner Family
DX: R92.2 Inconclusive mammogram (principal)
CPT/HCPCS: 77061; 77065

== ENCOUNTER → 2024-05-02 15:00 | Outpatient (BNV) | payer BC, SELFPAY | PROVIDERS: PCP Nurse Practitioner Family; Visit Provider Radiology Diagnostic Radiology | DX: R92.8 Other abnormal and inconclusive findings on diagnostic imaging of breast (principal) | CPT/HCPCS: 77061; 77065 ==

== ENCOUNTER 2024-08-29 08:45 | Outpatient (REF) | payer BC, SELFPAY | END 2024-08-29 08:46 | disposition home or self-care (01) | LOC: HO.MAMMO 08:45 | PROVIDERS: PCP Nurse Practitioner Family; Visit Provider Nurse Practitioner Family | DX: Z12.31 Encounter for screening mammogram for malignant neoplasm of breast (principal) | CPT/HCPCS: 77063; 77067 ==

== ENCOUNTER → 2024-08-29 08:45 | Outpatient (BNV) | payer BC, SELFPAY | PROVIDERS: PCP Nurse Practitioner Family; Visit Provider Internal Medicine | DX: Z12.31 Encounter for screening mammogram for malignant neoplasm of breast (principal) | CPT/HCPCS: 77063; 77067 ==

== ENCOUNTER 2025-03-27 13:52 | Outpatient (AMB) | payer BC, SELFPAY ==
[2025-03-27 13:56] VITALS: BP 110/62; PULSE 77; RESP 16; TEMP 36.9; O2SAT 99; BMI 43.2
--- NOTE | 2025-03-27 13:56 | MHC.PC.OV ---
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 Required: No Accompanied by: Self / Same As Patient Allergies erythromycin base (Erythromycin Base) Allergy (Unknown, Verified 03/27/25 14:51) RASH Penicillins Allergy (Unknown, Verified 03/27/25 14:51) ANAPHYLAXIS, hives Medication List - Last Reconciled 03/27/25 by Jeronimo Lewis, [employer]PERVISOR- ascorbic acid (vitamin C) mg PO cholecalciferol (vitamin D3) 125 mcg PO DAILY cyanocobalamin (vitamin B-12) 2,000 mcg PO DAILY ferrous sulfate ER 142 mg PO DAILY Tobacco use date assessed: 03/27/25 Dental Screening Dental Screen Date: 03/27/25 Did you have a dental visit in the last 12 months?: Yes Did you have a dental problem in the last 6 months where you did not have access to dental care?: No Was dental information given to patient?: Patient has dentist HPI PE HPI Details History of Present Illness The patient is a 44-year-old female presenting with a physical examination. She denies experiencing any shortness of breath, chest pain, abdominal pain, blood in stool, constipation, diarrhea, suicidal ideation, or homicidal ideation. slight Dermatitis was observed on the patient's right external area. Recommended the use of hydrocortisone cream to manage the dermatitis. 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 Social History Review of Systems - Respiratory: Denies dyspnea - Cardiovascular: Denies chest pain - Gastrointestinal: Denies abdominal pain, blood in stool, constipation, diarrhea - Psychiatric: Denies suicidal ideation, homicidal ideation Physical Exam General: Cooperative, healthy appearing, comfortable, no acute distress and well developed, morbidly obese Orientation: Patient oriented x3 Limitations: No limitations Head: Normal to inspection Ears: Hearing grossly normal bilaterally Nose: Normal external nose present Face and sinus: Normal facial exam Eyes: Appearance normal, both eyes and all related structures Neck: Normal visual inspection and Yes full ROM Respiratory: Normal respiratory effort and able to speak in complete sentences. Clear to auscultation bilaterally Cardiovascular: Regular rate and rhythm. Normal S1 and S2 GI: Normal to inspection. Soft to palpation and nontender Skin: Dermatitis noted on the right external area Neuro: Patient oriented x3 Extremities: Normal to inspection Results Plan The patient was advised to use hydrocortisone cream to manage the dermatitis observed on the right external area. Patient Instructions - Use hydrocortisone cream as directed for dermatitis on the right external area. [facility] Medical History Endometrioma of ovary Right ovarian cyst Holosystolic murmur Morbid obesity with BMI of 40.0-44.9, adult Iron deficiency anemia B12 deficiency Vitamin D deficiency Family history of breast cancer Surgical History Hx of hysterectomy History of tonsillectomy and adenoidectomy Hx of cholecystectomy H/O gastric bypass Family History Father No problems noted. Mother Breast cancer Bone cancer Brain cancer Maternal Grandmother Cancer HTN (hypertension) Ovarian cancer Maternal Grandfather No problems noted. Paternal Grandfather No problems noted. Paternal Grandmother Skin cancer Sister No problems noted. Son No problems noted. Son No problems noted. Social History Housing: House Alcohol intake: current Alcohol intake frequency: holidays/special occasions only Patient Tobacco Use Status: Never used Tobacco e-Cigarette/Vaping Use: Never Used Second Hand Smoke Exposure: No (as a child ) service: No Current occupational status: employed Current occupation: [employer] Current occupational exposures/hazards: Yes Sexual orientation: Straight/Heterosexual Gender identity: Female Cognitive needs: No Hearing needs: No Vision needs: No Female Reproductive History Menstrual Age of Menarche: 14 Questionnaire PHQ-9 Over the last 2 weeks, how often have you been bothered by any of the following problems? 1. Little interest or pleasure in doing things: not at all 2. Feeling down, depressed, or hopeless: not at all 3. Trouble falling or staying asleep, or sleeping too much: not at all 4. Feeling tired or having little energy: not at all 5. Poor appetite or overeating: not at all 6. Feeling bad about yourself - or that you are a failure or have let yourself or your family down: not at all 7. Trouble concentrating on things, such as reading the newspaper or watching television: not at all 8. Moving or speaking so slowly that other people could have noticed. Or the opposite - being so fidgety or restless that you have been moving around a lot more than usual: not at all 9. Thoughts that you would be better off or of hurting yourself in some way: not at all Total score: 0 Depression Screening Interpretation: Negative Depression Screening Done: Yes 72556 - PHQ-9 Billing: Yes Source: Developed by Drs. Guerrero Lee, Zarina Smyth, Thomas Figueroa and colleagues, with an educational aleksander from [email or web address]. Thrive Questionnaire Date Thrive assessed: 03/24/25 I am a: Patient What is your living situation today?: I have a steady place to live Within the past 12 months, did the food you bought not last and you didn't have the money to get more?: I choose not to answer this question Within the past 12 months, did you worry whether your food would run out before you got money to buy more?: Never true Do you have trouble paying for medicines?: No Do you have trouble getting transportation to medical appointments?: No Do you have trouble paying your heating and electricity bill?: No Do you have trouble taking care of your child, family member or friend?: No Do you have trouble with day-to-day activities such as bathing, preparing meals, shopping, managing finances, etc.?: No Are you currently unemployed and looking for a job?: No Are you interested in more education?: No Please select the resources that you would like help with: None Currently or been in a relationship where the following occur: No concerns reported THRIVE Score: 0 AUDIT C Alcohol Use Questionnaire (AUDIT-C) 1. How often do you have a drink containing alcohol?: Monthly or less 2. How many drinks containing alcohol do you have on a typical day when you are drinking?: 3 or 4 3. How often do you have six or more drinks on one occasion?: Less than monthly Total Score: 3 HARRISON-7 AMB Questionnaire HARRISON-7 Date HARRISON - 7 assessed: 03/27/25 Feeling nervous, anxious, or on edge: 0 = Not at all Not being able to stop or control worryin = Not at all Worrying too much about different things: 0 = Not at all Trouble relaxin = Not at all Being so restless that it is hard to sit still: 0 = Not at all Becoming easily annoyed or irritable: 0 = Not at all Feeling afraid as if something awful might happen: 0 = Not at all Total HARRISON-7 score (0-4 normal; 5-9 mild; 10-14 moderate; 15-21 severe): 0 Source: Developed by Drs. Guerrero Lee, Zarina Smyth, Thomas Figueroa and colleagues, with an educational aleksander from [email or web address]. HARRISON-7 Assessment Billing HARRISON-7 Assessment Tool: HARRISON-7 Assessment 29870 Physical exam (Primary Care) Vital Signs: Last Vital Signs Temp 98.4 F 03/27/25 13:56 Pulse 77 03/27/25 13:56 Resp 16 03/27/25 13:56 BP 110/62 03/27/25 13:56 Pulse Ox 99 03/27/25 13:56 Oxygen Delivery Method Room Air 03/27/25 13:56 BMI result Body Mass Index 43.2 Tobacco/Smoking Status: Tobacco use Status Tobacco use date assessed 03/27/25 03/27/25 14:03 Patient Tobacco Use Status Never used Tobacco 03/27/25 14:03 e-Cigarette/Vaping Use Never Used 03/27/25 14:03 PHQ-9: PHQ-9 Score PHQ-9: Total score 0 03/27/25 14:03 Depression Screening Interpretation: Negative Thrive Assessment: Date of Thrive Assessment Date Thrive assessed 03/24/25 03/27/25 14:03 Currently or been in a relationship where the following occur: No concerns reported Coding Level of Care Code Est Pt Prev Care 40-64y(49104) Diagnoses Physical exam Z00.00 B12 deficiency E53.8 Morbid obesity with BMI of 40.0-44.9, adult E66.01; Z68.41 Additional Codes HARRISON-7 Assessment Billing - HARRISON-7 Assessment Tool: HARRISON-7 Assessment 84893 ([id number]) PHQ-9 - 92034 - PHQ-9 Billing: Yes ([id number]) Assessment & Plan Assessment & Plan (1) Physical exam: Code(s): Z00.00 - Encounter for general adult medical examination without abnormal findings Category: Medical (2) B12 deficiency: Code(s): E53.8 - Deficiency of other specified B group vitamins Category: Medical (3) Morbid obesity with BMI of 40.0-44.9, adult: Code(s): E66.01 - Morbid (severe) obesity due to excess calories; Z68.41 - Body mass index [BMI] 40.0-44.9, adult Category: Medical Plan . Orders: Orders TSH reflex Free T4 Today Z00.00 - Encounter for general adult medical examination without abnormal findings Lipid Panel Today Z00.00 - Encounter for general adult medical examination without abnormal findings Vitamin B12 and Folate Today E53.8 - Deficiency of other specified B group vitamins Vitamin D 25-OH Total Today E66.01 - Morbid (severe) obesity due to excess calories, Z00.00 - Encounter for general adult medical examination without abnormal findings, Z68.41 - Body mass index [BMI] 40.0-44.9, adult Complete Blood Count Auto Diff Today Z00.00 - Encounter for general adult medical examination without abnormal findings Comprehensive Mongo. Panel Fast Today Z00.00 - Encounter for general adult medical examination without abnormal findings UA CC w/rflx Micro + Cult Today Z00.00 - Encounter for general adult medical examination without abnormal findings
== END 2025-03-27 14:45 | disposition home or self-care (01) ==
LOC: HO.HMCC 13:54
PROVIDERS: PCP Nurse Practitioner Family; Visit Provider Nurse Practitioner Family
DX: Z00.00 Encounter for general adult medical examination without abnormal findings (principal); E53.8 Deficiency of other specified B group vitamins; E66.01 Morbid (severe) obesity due to excess calories; Z68.41 Body mass index [BMI] 40.0-44.9, adult

== ENCOUNTER → 2025-03-27 13:52 | Outpatient (BNVA) | payer BC, SELFPAY | PROVIDERS: PCP Nurse Practitioner Family; Visit Provider Nurse Practitioner Family | DX: Z00.00 Encounter for general adult medical examination without abnormal findings (principal); E53.8 Deficiency of other specified B group vitamins; E66.01 Morbid (severe) obesity due to excess calories; Z68.41 Body mass index [BMI] 40.0-44.9, adult; L30.9 Dermatitis, unspecified; Z13.31 Encounter for screening for depression; Z13.39 Encounter for screening examination for other mental health and behavioral disorders | CPT/HCPCS: 96127 ==